=== PATIENT | male | born 1990 | race Caucasian/White ===

== ENCOUNTER 2022-12-02 22:01 | Emergency (ER) | payer OTHER | END 2022-12-03 | disposition home or self-care (01) | LOC: JP.ED 22:01 | DX: S01.01XA Laceration without foreign body of scalp, initial encounter (principal); M54.2 Cervicalgia; V86.55XA Driver of 3- or 4- wheeled all-terrain vehicle (ATV) injured in nontraffic accident, initial encounter; Y92.410 Unspecified street and highway as the place of occurrence of the external cause | CPT/HCPCS: 12001; 70450; 72125; 76377; 99283 ==